=== PATIENT | female | born 1975 | race Caucasian/White ===

== ENCOUNTER 2016-11-11 22:59 | Emergency (ER) | payer BC ==
--- NOTE | ~2016-11-11 | CR127 ---
[facility] A Service of [facility] & [facility] / [facility] RADIOLOGY TEXT RESULTS PATIENT: COLTEN RASHEED LOCATION: SED : 79 UNIT #: [id number] AGE: [address]: Rahul Goff MD SEX: F ORDER DR: [id number] [place] [id number] E MR#: [id number] Acc #: [id number] NAME: COLTEN RASHEED : 1975 SEX: F STUDY DATE/TIME: 11/11/20162326 UNIT: SED ROOM: STUDY DESCRIPTION: CR Foot Complete Min 3 View Rt Attending Physician: Rahul Goff M.D. Ordering Physician: Rahul Goff M.D. Primary Care Physician: Rae Shabazz A.P.R.N. MEDICAL IMAGING REPORT This report is preliminary unless electronic signature is present. EXAM Right foot, 11/11, 2327 hours. INDICATION Rolling injury just prior to arrival to the emergency department. Foot and ankle pain laterally. FINDINGS The tarsal, metatarsal, and phalangeal elements are all anatomically normal in position and alignment. There are no articular defects. No fractures or radiopaque foreign bodies in the soft tissues are apparent. IMPRESSION Normal foot. Dictated by... Damian Oropeza Jr., M.D. THIS IS AN ELECTRONICALLY VERIFIED REPORT Damian Oropeza Jr., M.D. at 11/12/2016 9:21 PM ALPESH/allegra TD: 11/12/2016 11:47 JOB #: [id number] MEDICAL IMAGING REPORT Page 1 of 1
--- NOTE | ~2016-11-11 | CR21 ---
[facility] A Service of [facility] & [facility] RADIOLOGY TEXT RESULTS PATIENT: COLTEN RASHEED LOCATION: SED : 79 UNIT #: [id number] AGE: [address]: Rahul Goff MD SEX: F ORDER DR: [id number] [place] [id number] E MR#: [id number] Acc #: [id number] NAME: COLTEN RASHEED : 1975 SEX: F STUDY DATE/TIME: 11/11/2016 UNIT: SED ROOM: STUDY DESCRIPTION: CR Ankle Min 3 Views Rt Attending Physician: Rahul Goff M.D. Ordering Physician: Rahul Goff M.D. Primary Care Physician: Rae Shabazz A.P.R.N. MEDICAL IMAGING REPORT This report is preliminary unless electronic signature is present. EXAM Right ankle 11/11/2016 at 23:27 INDICATIONS Ankle pain after rolling injury just prior to arrival to the emergency department. FINDINGS 3 views of the right ankle were obtained. There is lateral soft tissue swelling. No fracture or malalignment is seen. The mortise is intact. IMPRESSION Lateral soft tissue swelling. Otherwise negative. Dictated by... Damian Oropeza Jr., M.D. THIS IS AN ELECTRONICALLY VERIFIED REPORT Damian Oropeza Jr., M.D. at 11/12/2016 9:21 PM ALPES[facility]/claudia TD: 11/12/2016 11:46 JOB #: [id number] MEDICAL IMAGING REPORT Page 1 of 1
[~2016-11-11 22:59] MED LIST: IBUPROFEN; MULTI-VITAMIN1 TAB
[2016-11-11] MEDS ORDERED: LORTAB 5-325 M1 EACH (23:11)
== END 2016-11-12 00:04 | disposition home or self-care (01) ==
LOC: SED 22:59
DX: S93.401A Sprain of unspecified ligament of right ankle, initial encounter (principal); S93.601A Unspecified sprain of right foot, initial encounter; X50.1XXA Overexertion from prolonged static or awkward postures, initial encounter; Y92.009 Unspecified place in unspecified non-institutional (private) residence as the place of occurrence of the external cause
CPT/HCPCS: 73610; 73630; 99283